=== PATIENT | female | born 1995 | race Caucasian/White ===

== ENCOUNTER → 2023-03-14 | Outpatient (CLI) | payer OTHER | LOC: M WHC 06:54 | PROVIDERS: ATTEND Family Medicine | DX: N63.22 Unspecified lump in the left breast, upper inner quadrant (principal) ==

== ENCOUNTER → 2023-04-04 | Outpatient (CLI) | payer OTHER ==
[~2023-04-04] MED LIST: LEVO50TA5 PO; LEXA1TAB PO; LIDOCAINE 1% MDV 20ML VIAL As Ordered ONE; LISI10TA22 PO
[2023-04-04 13:17] VITALS: TEMP 98
[2023-04-04 14:03] VITALS: BP 125/78; O2SAT 97
== END ==
LOC: M IRPRO 12:32
PROVIDERS: ATTEND Family Medicine
DX: N63.25 Unspecified lump in the left breast, overlapping quadrants (principal)

== ENCOUNTER 2024-04-03 10:11 | Emergency (ER) | payer OTHER ==
[~2024-04-03] VITALS: Ht 162.6 cm; Wt 121.5 kg
[~2024-04-03 10:11] MED LIST changes: -LIDOCAINE 1% MDV 20ML VIAL As Ordered ONE
[2024-04-03 11:48] LABS: BASO # 0.1 10^3/uL (0.0-0.2); BASO % 0.7 % (0.0-1.0); EOS # 0.2 10^3/uL (0.0-0.5); EOS % 2.2 % (0.0-3.0); HEMATOCRIT 42.4 % (36.0-47.0); HEMOGLOBIN 14.2 g/dl (12.0-15.5); LYMPH # 2.3 10^3/uL (1.5-5.0); LYMPH % 33.4 % (24.0-44.0); MEAN CORPUSCULAR HEMOGLOBIN 29.6 pg (27.0-33.0); MEAN CORPUSCULAR HGB CONC 33.5 g/dl (32.0-36.5); MEAN CORPUSCULAR VOLUME 88.5 fl (80.0-96.0); MONO # 0.4 10^3/uL (0.0-0.8); MONO % 6.3 % (2.0-8.0); NEUTROPHILS # 3.9 10^3/uL (1.5-8.5); NEUTROPHILS % 57.1 % (36.0-66.0); PLATELET COUNT, AUTOMATED 228 10^3/uL (150-450); RED BLOOD COUNT 4.79 10^6/uL (4.00-5.40); WHITE BLOOD COUNT 6.9 10^3/uL (4.0-10.0)
[2024-04-03] MEDS: ONDANSETRON 4MG 2ML VIAL IV ONE (11:52)
[2024-04-03] MEDS: NS 1,000 ML IV ONE (11:52)
[2024-04-03 12:06] LABS: LIPASE 97 U/L (12-53)
[2024-04-03 12:09] LABS: ALBUMIN 3.6 G/DL (3.2-5.2); ALKALINE PHOSPHATASE 74 U/L (46-116); ALT/SGPT 14 U/L (7.0-40); AST/SGOT 27 U/L (<34); BILIRUBIN,DIRECT < 0.1 MG/DL (<0.4); BILIRUBIN,TOTAL 0.4 MG/DL (0.3-1.2); HCG, SERUM QUALITATIVE NEGATIVE (NEGATIVE); TOTAL PROTEIN 7.1 G/DL (5.7-8.2)
[2024-04-03] MEDS ORDERED: ISOVUE-370 76% 100ML VIAL As Ordered ONE (13:01)
[2024-04-03] MEDS ORDERED: IBUP80TA PO (16:00)
[2024-04-03] MEDS ORDERED: ONDA-282 PO (16:00)
[2024-04-03 16:12] VITALS: BP 131/72; TEMP 97.2; O2SAT 100
== END 2024-04-03 16:17 | disposition home or self-care (01) ==
LOC: M ED 10:11
DX: D25.9 Leiomyoma of uterus, unspecified (principal); I10 Essential (primary) hypertension; F41.9 Anxiety disorder, unspecified; F32.A Depression, unspecified; Z79.1 Long term (current) use of non-steroidal anti-inflammatories (NSAID); Z79.899 Other long term (current) drug therapy
CPT/HCPCS: 74177; 76830; 76856; 80047; 80076; 81001; 83690; 84703; 85025; 93976; 96361; 96374; 99284; J2405; Q9967